=== PATIENT | female | born 1975 | race Caucasian/White ===

== ENCOUNTER 2021-08-08 16:23 | Outpatient (CLI) | payer OTHER | END 2021-08-08 16:24 | disposition home or self-care (01) | LOC: CSHLAB 16:23 | PROVIDERS: ATTEND Student in an Organized Health Care Education/Training Program | DX: Z01.812 Encounter for preprocedural laboratory examination (principal); Z20.822 Contact with and (suspected) exposure to COVID-19; N92.0 Excessive and frequent menstruation with regular cycle | CPT/HCPCS: 84703; 85027; 86850; 86900; 86901; U0003; U0005 ==

== ENCOUNTER 2021-08-13 08:21 | Day surgery (SDC) | payer OTHER ==
[2021-08-07 15:55] VITALS: BMI 30.1
[2021-08-08 17:41] LABS: Hemoglobin 11.2 g/dL (12.0-15.5); Mean Corpuscular HGB CONC 29.3 g/dL (32.0-36.0); Mean Corpuscular Volume 78.4 fl (81.6-98.3); Mean Platelet Volume 10.5 fl (7.4-10.4); Platelet Count 312 10x3/uL (150-450); RBC Distribution Width 16.6 % (11.5-14.5); Red Blood Cell (RBC) Count 4.87 10x6/uL (3.90-5.03)
[2021-08-08 17:59] LABS: BHCG - Serum Negative (NEGATIVE); Pregs Control Background? CLEAR/WHITE (CLR/WHITE); Pregs Control Bar Appear? YES (CONTROL BAR)
[2021-08-09 18:15] LABS: SARS-CoV-2 PCR by NAA Not Detected (NotDetected)
[2021-08-13] MEDS ORDERED: CeleCOXIB 100 MG CAP ONE (08:34)
[2021-08-13] MEDS ORDERED: Gabapentin 300 MG CAP ONE (08:34)
[2021-08-13] MEDS ORDERED: Lidocaine 1% MPF 2 ML VIAL ONE (08:35)
[2021-08-13] MEDS ORDERED: Famotidine/PF 20 mg/2ml Vial ONE (08:35)
[2021-08-13] MEDS ORDERED: EPINEPHrine 1 MG/ML AMP ONE (09:35)
[2021-08-13] MEDS ORDERED: Bupivacaine PF 0.5% 30 ML VIAL ONE (09:36)
[2021-08-13] MEDS ORDERED: Rocuronium Bromide 10 MG/ML (10ML VIAL) ONE (09:48)
[2021-08-13] MEDS ORDERED: PROPOFOL 20 ML ONE (09:48)
[2021-08-13] MEDS ORDERED: Fentanyl 250 MCG/5 ML VIAL ONE (09:48)
[2021-08-13] MEDS ORDERED: Lidocaine 1% PF 5 ML VIAL ONE (09:48)
[2021-08-13] MEDS ORDERED: ceFAZolin 2 GM/Dextrose 50 ML IVPB ONE (09:53)
[2021-08-13] MEDS ORDERED: Midazolam HCl 2 mg/2 ml Vial ONE (09:57)
[2021-08-13] MEDS ORDERED: Ondansetron PF 4 MG/2 ML Vial ONE (10:20)
[2021-08-13] MEDS ORDERED: Dexamethasone 4 mg/ml Vial ONE (10:20)
[2021-08-13] MEDS ORDERED: Glycopyrrolate 0.2 MG/ML 5 ML SYRINGE ONE (10:41)
[2021-08-13] MEDS ORDERED: Fentanyl 100 MCG/2 ML VIAL ONE (12:05)
[2021-08-13] MEDS ORDERED: HYDROcodone/Acetaminophen 5/325 mg Tablet ONE (13:44)
== END 2021-08-13 15:20 | disposition home or self-care (01) ==
LOC: CSHSDC 08:21
PROVIDERS: ATTEND Student in an Organized Health Care Education/Training Program
PROC: 0UT94ZZ Resection of Uterus, Percutaneous Endoscopic Approach (ICD-10-PCS; principal; 2021-08-13)
PROC: 0UT74ZZ Resection of Bilateral Fallopian Tubes, Percutaneous Endoscopic Approach (ICD-10-PCS; principal; 2021-08-13)
DX: N80.0 Endometriosis of uterus (principal); N73.6 Female pelvic peritoneal adhesions (postinfective); E66.9 Obesity, unspecified; Z68.30 Body mass index [BMI] 30.0-30.9, adult; Z91.09 Other allergy status, other than to drugs and biological substances; Z20.822 Contact with and (suspected) exposure to COVID-19
CPT/HCPCS: 84703; 85027; 86850; 86900; 86901; 88307; J0171; J0690; J1100; J2250; J2405; J2704; J3010; S0020; S0028; U0003; U0005